=== PATIENT | male | born 1945 | race Caucasian/White ===

== ENCOUNTER 2017-07-08 01:15 | Inpatient (IN) | payer OTHER ==
[~2017-07-08] VITALS: Ht 190.5 cm; Wt 105.8 kg
[~2017-07-08 01:15] MED LIST: ASPIRIN325 M2 PO; ATORVASTATIN CA40 M1 PO; LISINOPRIL20 M1 PO; PAROXETINE HCL20 M1 PO
--- NOTE | 2017-07-08 10:40 | Admission Core Measures ---
Acute Coronary Syndrome (CM) ACS Core Measures Acute Coronary Syndrome Diagnosis No Congestive Heart Failure (NEW) CHF Core Measures Congestive Heart Failure Diagnosis No Cerebrovascular Accident (NEW) CVA Core Measures CVA/TIA Diagnosis No Venous Thromboembolism VTE Core Nenita (View Protocol) VTE Risk Factors Surgery No Mechanical VTE Prophylaxis d/t N/A MechProphylax Ordered No VTE Pharm Prophylaxis d/t Surgical Contraindication Problem List As ranked by this Provider includes Assessment & Plan 1. S/P AAA (abdominal aortic aneurysm) repair HOME MEDS Home Med List Aspirin (Aspirin*) 325 MG TABLET 1 TAB PO DAILY CARDIAC (Reported) Atorvastatin Calcium 40 MG TABLET 1 TAB PO DAILY CHOLESTEROL (Reported) Lisinopril 20 MG TABLET 1 TAB PO DAILY HTN (Reported) Paroxetine HCl 20 MG TABLET 1 TAB PO DAILY MOOD (Reported)
--- NOTE | 2017-07-08 10:45 | Operative Report ---
Operative/Inv Procedure Report Surgery Date: 07/08/17 Name of Procedure: 1. ultrasound guided access of the bilateal groins 2. EVAR 3. closure of bilateral groins with perclose Pre-Operative Diagnosis: AAA Post-Operative Diagnosis: AAA Estimated Blood Loss: less than 50ml Surgeon/Tie Mill Operator: Sarmad OJEDA,Dillon assistant analyst- Brisa OJEDA, Toy Anesthesia: general endotracheal tube Specimens: none Complications: none Operative Indication: 72 y/o m w/ hx of CAD, smoking, known AAA. Pt had imaging of AAA over 1 year ago. Us this year showed aneursym had increased to 5.8cm in diamater. This was confirmed with CTA. Anatomy suitable for EVAR. pt was asymptomatic. He was explained risks/benefits/alternatives of surgery including need for life long surveillance of the anuersym after repair. Informed consent was obtained and placed in the chart. Operative/Procedure Note Note: Pt was brought to the OR. A time out was done to verify the patients name, mrn, . Once this was verified he was placed under anethesia in the supine position. Radial a line, white, and multiple large bore iv's were placed. He was administered prophylactic abx prior to skin incision. His bilateral groins were prepped and drapped in a sterile fashion. Dr. Sykes assisted me for the entiriety of the procedure as there was no pa or resident available with adequate experience. Using ultrasound guidance we directly accessed the bilateral common femoral arteries with micropuncture sheath. Bensons wires were advanced into the aorto using fluoroscopy. A skin incison was made with 11 blade scalpel in both groins and clamp was used to create a tract for perclose closure. We then upsized to 7 sheaths bilaterally. We then used 2 perclose in each groin to position sutures in the 10 oclock and 2 oclock position. ONce these were placed the sutures were covered with moistened gauze and the 7 faroese sheaths were re positioned. At this time we fully heparnized the pt. We then advanced a lundequist wire up the right groin and placed a pigtail catheter up the left side. We then shot an aortogram using the pigtail. The position of the renal arteries was marked and we measured the distance to the bifurcation. We then advanced a cook zenith 24-82 device up the right groin. Prior to deploying the stent we re shot an angiogram which confirmed that we were satisified with our position. We confirmed the orientation of the stent with the check jevon on the device. We then deployed the stent until the contralateral gate was deployed. The top cap was released. Subsequently we used an omni sauce gatheter and glide wire to cannulate the contralateral gate. We then advanced a pig tail and spun it within the stent to comfirm we were infact within the stent. We also shot an angiogram. The lundequist was then placed up through the pigtail and we shot an angiogram from the left sheath to measure the distance to the hypogastric arteries. We then advanced a Zsle 13- 90mm limb up the left side and deployed it. We then finished deploying the ipsalateral gate and then re captured the top cap. We then used a pigtail and shot angiogram on the right to measure distance to the hypo. We then advanced the ZSLE 15-56 device up the right side and deployed it. We then used a coda balloon to ballon the superior portion of the stent, bilateral flow deviders, and the iliac limbs. We then shot a completion aortogram which showed both renal arteries and hypogastric arteries were filling and there was no endoleak. At this time we were satisfied with our results. Both sheaths and wires were removed and the perclose sutures were used to close both groins. We held pressure until hemostasis was obtained. All counts were accurate at the end of the cath. The patient was extubated and transferred to the pacu in stable condition. Findings: 5.8cm AAA. Successful placement of cook endograft with post angiogram demonstrating filling of the bilateral renals/ hypogastric artery and no endoleak.
--- NOTE | 2017-07-08 10:47 | Patient Discharge Instructions ---
Discharge Instructions General Discharge Information You were seen/treated for: ABDOMINAL AORTIC ANEURYSM You had these procedures: ENDOVASCUALR REPAIR OF AORTIC ANEURYSM Watch for these problems: DRAINAGE FROM WOUNDS REDNESS OR SWELLING AROUND WOUNDS FEVER OVER 101 No bath, but you may shower: Yes Special Instructions: KEEP INCISIONS CLEAN AND DRY Diet Continue normal diet: Yes Activity Activity Self Limited: Yes Pounds, do NOT lift more than: 10 Acute Coronary Syndrome Inclusion Criteria At DC or during hospital stay patient has or had the following: ACS DIAGNOSIS No Discharge Core Measures Meds if any: Prescribed or Continued at Discharge Meds if any: NOT Prescribed or Continued at Discharge Congestive Heart Failure Inclusion Criteria At DC or during hospital stay patient has or had the following: CHF DIAGNOSIS No Discharge Core Measures Meds if any: Prescribed or Continued at Discharge Meds if any: NOT Prescribed or Continued at Discharge Cerebrovascular accident Inclusion Criteria At DC or during hospital stay patient has or had the following: CVA/TIA Diagnosis No Discharge Core Measures Meds if any: Prescribed or Continued at Discharge Meds if any: NOT Prescribed or Continued at Discharge Venous thromboembolism Inclusion Criteria VTE Diagnosis No VTE Type NONE VTE Confirmed by (Test) NONE Discharge Core Measures - Per Current guidelines, there needs to be overlap - treatment for the first 5 days of Warfarin therapy. - If discharged on Warfarin prior to 5 days of - overlap therapy, the patient will need to be - assessed for post discharge needs including - *Post discharge parental anticoagulation - *Warfarin and/or parental anticoagulation education - *Follow up date to check INR post discharge At least 5 days overlap therapy as Inpatient No Meds if any: Prescribed or Continued at Discharge Note: Overlap Therapy is Warfarin and Anticoagulant Meds if any: NOT Prescribed or Continued at Discharge
[2017-07-08 12:10] VITALS: BP 112/60
--- NOTE | 2017-07-08 12:53 | RADIOLOGY REPORT ---
EXAMINATION: CR ABDOMEN/INTRAOPERATIVE FLUOROSCOPY CLINICAL INDICATION: Endovascular abdominal aortic aneurysm repair in OR. COMPARISON: Scan of the abdomen and pelvis dated 06/17/2017. TECHNIQUE/FINDINGS: Fluoroscopic equipment was dedicated to the operating room for the performance of an intraoperative procedure. Several (3) spot films and 7 cine fluoroscopy runs were acquired and are archived in PACS. Please refer to operative notes for procedural detail. FLUOROSCOPY TIME: 19 minutes and 33 seconds. IMPRESSION: Administrative dictation for intraoperative fluoroscopy and image archiving in PACS. Please refer to operative notes for details.
[2017-07-08 14:00] VITALS: BP 109/64
--- NOTE | 2017-07-08 14:04 | PN- Vascular Surgery ---
Subjective Subjective: POC pt in bed, no complaints of pain. no nausea. laying flat in bed, on bedrest white in place. deneis cp/sob, fevers Objective Vital Signs and I&Os Vital Signs Date Time Temp Pulse Resp B/P B/P Pulse O2 O2 Flow FiO2 Mean Ox Delivery Rate 07/08 1210 97.9 60 22 112/60 97 Room Air Intake & Output 07/08 1600 07/08 0800 07/08 0000 07/07 1600 07/07 0807/07 0000 Intake Total Output Total Balance Patient 233 lb Weight Weight Bed scale Measurement Method Physical Exam: gen- NAD resp- clear cardiac- RRR abd- ND, soft, NT bilateral groins are nontender, no swelling, minimal dry sang drainage on dressing, 2+ femoral pulses bilaterally. ext- +PT signals bilaterally. feet warm and dry. distal sensory and motor function intact Current Medications: Current Medications Sig/Jared Start time Last Medication Dose Route Stop Time Status Admin Aspirin 325 MG DAILY 07/09 899 DC PO Aspirin 325 MG DAILY 07/09 899 AC PO Atorvastatin Calcium 40 MG DAILY 07/09 899 DC PO Atorvastatin Calcium 40 MG DAILY 07/09 899 AC PO Cefazolin Sodium 2 GM IQ8 07/08 1600 AC N/A 1 UNIT IV 07/09 0029 Dextrose/Sodium 1,000 ML .[id number] 07/08 1230 AC 07/08 Chloride IV 1309 Lisinopril 20 MG DAILY 07/09 899 DC PO Lisinopril 20 MG DAILY 07/09 899 AC PO Morphine Sulfate 2 MG Q2P PRN 07/08 1230 AC IV Ondansetron HCl 4 MG Q6P PRN 07/08 1230 AC IV Oxycodone/ 1 TAB Q4P PRN 07/08 1230 AC Acetaminophen PO Oxycodone/ 2 TAB Q4P PRN 07/08 1230 AC Acetaminophen PO Paroxetine HCl 20 MG DAILY 07/09 899 DC PO Paroxetine HCl 20 MG DAILY 07/09 899 AC PO Promethazine HCl 12.5 MG Q6P PRN 07/08 1230 AC IV 07/15 1029 Assessment/Plan Assessment/Plan 72yo M SP EVAR POD0. stable bedrest with flat head of bed until 5pm. white to come out tonight pain management FU labs Q4h neurovascular and groin checks reg home meds perio-op abx for 24h total dc planning- likely dc to home tomorrow with [address] Bañuelos Core Measures Venous Thromboembolism VTE Risk Factors Surgery No Mechanical VTE Prophylaxis d/t N/A MechProphylax Ordered No VTE Pharm Prophylaxis d/t Surgical Contraindication
--- NOTE | 2017-07-08 14:09 | Surgical Discharge Summary ---
See Addendum Visit Information Visit Dates Admission Date: 07/08/17 Discharge Date: 07/09/17 History of Present Illness Chief Complaint: infra-renal AAA Medical History Blood Transfusion Hx: No Neurological: NONE EENT: NONE Cardiovascular: hypertension, hyperlipidemia Respiratory: NONE Gastrointestinal: NONE Hepatic: NONE Renal: NONE Musculoskeletal: NONE Psychiatric: NONE Endocrine: L ADRENECTOMY Blood Disorders: NONE Cancer(s): NONE SLUNK SKINNER/Reproductive: NONE History of MRSA: No History of VRE: No History of CDIFF: No Isolation History: Standard Surgical History Pertinent Surgical History: non-contributory Psychosocial History Where Do You Live? Home Who Do You Live With? Spouse Services at Home: None What is Your Primary Language? Mexican Review of Systems: PER [facility] Hospital Course Course Attending Physician: Dillon Bañuelos MD Primary Care Physician: Javier Rubalcava MD Hospital Course: pt presented to [facility] on 07/08/17 for an elective EVAR with Dr. Bañuelos. PT tolerated procedure well. Remained on bedrest with the head of bed flat for 6 hours post-operatively, pain was controlled neurovascular status was same as baseline, white was removed and pt was voiding spontaneously. He was ambulating, tolerating diet and was cleared for DC to home with follow-up with Dr Bañuelos recommended in 2 weeks. Allergies: Coded Allergies: No Known Allergies (07/04/17) Disposition Summary Disposition Principal Diagnosis: AAA Additional Diagnosis: SP EVAR Discharge Disposition: home or self care Discharge Instructions General Discharge Information Code Status: Full Code Patient's Diet: regular Patient's Activity: as tolerated Follow-Up Instructions/Appts: FU with Dr. Bañuelos in 1-2 weeks Medications at Discharge Discharge Medications: Continue taking these medications: Lisinopril (Lisinopril) 20 MG TABLET 1 Tablet ORAL DAILY Comments: Last Taken: 07/09/17 Time: 0800AM Atorvastatin Calcium (Atorvastatin Calcium) 40 MG TABLET 1 Tablet ORAL DAILY Comments: Last Taken: 07/09/17 Time: 0800AM Paroxetine HCl (Paroxetine HCl) 20 MG TABLET 1 Tablet ORAL DAILY Comments: Last Taken: 07/09/17 Time: 0800AM Aspirin (Aspirin*) 325 MG TABLET 1 Tablet ORAL DAILY Comments: Last Taken: 07/09/17 Time: 0845AM Start taking the following new medications: Oxycodone HCl/Acetaminophen (Percocet 5-325 MG Tablet) 5 MG-325 MG TABLET 1-2 Tablet ORAL EVERY 4-6 HOURS as needed for PAIN Qty = 15 No Refills Comments: NOT GIVEN IN HOSPITAL Copies To: Khadar OJEDA,Javier Bailon
[2017-07-08 16:00] VITALS: BP 124/78
[2017-07-08 16:01] LABS: ABSOLUTE BASOPHIL COUNT 0 /CUMM (0.0-0.2); ABSOLUTE EOSINOPHIL COUNT 0.1 /CUMM (0.0-0.7); ABSOLUTE GRANULOCYTE CT 5.2 /CUMM (1.4-6.5); ABSOLUTE LYMPH COUNT 1.5 /CUMM (1.2-3.4); ABSOLUTE MONOCYTE COUNT 0.4 /CUMM (0.10-0.60); BASOPHIL % 0.4 % (0.0-2.0); EOSINOPHIL % 1.9 % (0-5); GRANULOCYTE % 71.5 % (42.2-75.2); MEAN CORPUSCULAR HGB 32.2 PG (27.0-31.0); MEAN CORPUSCULAR HGB CONC 33.5 G/DL (33.0-37.0); MEAN CORPUSCULAR VOLUME 95.9 FL (80.0-94.0); MEAN PLATELET VOLUME 7.6 FL (7.4-10.4); PLATELET COUNT 191 /CUMM (130-400); RBC DISTRIBUTION WIDTH 12.5 % (11.5-14.5); RED BLOOD CELL CT 4.07 /CUMM (4.70-6.10); WHITE BLOOD CELL COUNT 7.3 /CUMM (4.8-10.8)
[2017-07-08 18:00] VITALS: BP 102/52
[2017-07-08 21:59] VITALS: BP 100/56
[2017-07-09 02:06] VITALS: BP 108/60
[2017-07-09 06:10] VITALS: BP 118/60
[2017-07-09 08:26] LABS: ABSOLUTE BASOPHIL COUNT 0 /CUMM (0.0-0.2); ABSOLUTE EOSINOPHIL COUNT 0.2 /CUMM (0.0-0.7); ABSOLUTE GRANULOCYTE CT 6.9 /CUMM (1.4-6.5); ABSOLUTE MONOCYTE COUNT 0.6 /CUMM (0.10-0.60); BASOPHIL % 0.3 % (0.0-2.0); EOSINOPHIL % 1.8 % (0-5); GRANULOCYTE % 78.9 % (42.2-75.2); HEMATOCRIT 38.4 % (42-52); MEAN CORPUSCULAR HGB 32.4 PG (27.0-31.0); MEAN CORPUSCULAR VOLUME 95.2 FL (80.0-94.0); MEAN PLATELET VOLUME 7.9 FL (7.4-10.4); PLATELET COUNT 178 /CUMM (130-400); RBC DISTRIBUTION WIDTH 12.1 % (11.5-14.5); RED BLOOD CELL CT 4.04 /CUMM (4.70-6.10); WHITE BLOOD CELL COUNT 8.7 /CUMM (4.8-10.8)
--- NOTE | 2017-07-09 09:27 | PN- Vascular Surgery ---
Subjective Subjective: Patient reports incisional discomfort, which is improved with ice and perocet. He reports voiding and ambulating without difficulty. Reports back pain from laying in bed yesterday. Otherwise, offers no other complaints. He is eager to go home today. Objective Vital Signs and I&Os Vital Signs Date Time Temp Pulse Resp B/P B/P Pulse O2 O2 Flow FiO2 Mean Ox Delivery Rate 07/09 0845 64 118/78 07/09 0610 98.4 59 20 118/60 90 Room Air 07/09 0206 98.7 52 20 108/60 90 Room Air 07/08 2159 98.3 53 18 100/56 93 Room Air 07/08 1800 98.4 60 20 102/52 95 Room Air 07/08 1600 98.0 49 18 124/78 95 Room Air 07/08 1400 97.9 58 18 109/64 95 Room Air 07/08 1210 97.9 60 22 112/60 97 Room Air Intake & Output 07/09 1600 07/09 0800 07/09 0000 07/08 1600 07/08 0800 07/08 0000 Intake Total 600 725 250 Output Total 825 625 850 Balance -225 100 -600 Intake, IV 600 525 150 Intake, Oral 200 100 Number 0 Bowel Movements Output, Urine 825 625 850 Patient 233 lb Weight Weight Bed scale Measurement Method Physical Exam: Gen - NAD Lungs - faint ex wheezes in b/l bases Cardiac- RRR Abd- softly distended, nontender throughout - ice in place, right groin dressing is mild saturated, left is clean an dry, he is appropriately tender, mild swelling, pulses present B/L Ext - distal sensory and motor function intact, pulses present, no edema or calf tenderness B/L Current Medications: Current Medications Sig/Jared Start time Last Medication Dose Route Stop Time Status Admin Aspirin 325 MG DAILY 07/09 899 DC PO Aspirin 325 MG DAILY 07/09 899 AC 07/09 PO 0845 Atorvastatin Calcium 40 MG DAILY 07/09 899 DC PO Atorvastatin Calcium 40 MG DAILY 07/09 899 AC 07/09 PO 0845 Cefazolin Sodium 2 GM IQ8 07/08 1600 DC 07/09 N/A 1 UNIT IV 07/09 0029 0003 Dextrose/Sodium 1,000 ML .[id number] 07/08 1230 DC 07/09 Chloride IV 0328 Lisinopril 20 MG DAILY 05/01 0900 DC PO Lisinopril 20 MG DAILY 07/09 09 AC 07/09 PO 0845 Morphine Sulfate 2 MG Q2P PRN 07/08 1230 AC IV Ondansetron HCl 4 MG Q6P PRN 07/08 1230 AC IV Oxycodone/ 1 TAB Q4P PRN 07/08 1230 AC Acetaminophen PO Oxycodone/ 2 TAB Q4P PRN 07/08 1230 AC 07/08 Acetaminophen PO 1913 Paroxetine HCl 20 MG DAILY 07/09 899 DC PO Paroxetine HCl 20 MG DAILY 07/09 899 AC 07/09 PO 0845 Promethazine HCl 12.5 MG Q6P PRN 07/08 1230 AC IV 07/15 1029 Results Last 48 Hours of Labs: Laboratory Tests 07/09 07/08 0557 1447 Chemistry Sodium (137 - 145 mmol/L) 135 L 136 L Potassium (3.5 - 5.1 mmol/L) 4.4 4.4 Chloride (98 - 107 mmol/L) 97 L 101 Carbon Dioxide (22 - 30 mmol/L) 27 28 Anion Gap (5 - 16) 10 6 BUN (9 - 20 mg/dL) 12 12 Creatinine (0.7 - 1.2 mg/dL) 0.7 0.6 L Estimated GFR (>60 ml/min) > 60 > 60 BUN/Creatinine Ratio (7 - 25 %) 17.1 20.0 Hematology CBC w Diff NO MAN DIFF REQ NO MAN DIFF REQ WBC (4.8 - 10.8 /CUMM) 8.7 7.3 RBC (4.70 - 6.10 /CUMM) 4.04 L 4.07 L Hgb (14.0 - 18.0 G/DL) 13.1 L 13.1 L Hct (42 - 52 %) 38.4 L 39.0 L MCV (80.0 - 94.0 FL) 95.2 H 95.9 H MCH (27.0 - 31.0 PG) 32.4 H 32.2 H MCHC (33.0 - 37.0 G/DL) 34.0 33.5 RDW (11.5 - 14.5 %) 12.1 12.5 Plt Count (130 - 400 /CUMM) 178 191 MPV (7.4 - 10.4 FL) 7.9 7.6 Gran % (42.2 - 75.2 %) 78.9 H 71.5 Lymphocytes % (20.5 - 51.1 %) 11.7 L 20.1 L Monocytes % (1.7 - 9.3 %) 7.3 6.1 Eosinophils % (0 - 5 %) 1.8 1.9 Basophils % (0.0 - 2.0 %) 0.3 0.4 Absolute Granulocytes (1.4 - 6.5 /CUMM) 6.9 H 5.2 Absolute Lymphocytes (1.2 - 3.4 /CUMM) 1.0 L 1.5 Absolute Monocytes (0.10 - 0.60 /CUMM) 0.6 0.4 Absolute Eosinophils (0.0 - 0.7 /CUMM) 0.2 0.1 Absolute Basophils (0.0 - 0.2 /CUMM) 0 0 Assessment/Plan Assessment/Plan 72 M POD 1 s/p EVAR, recovering well, stable for discharge Cont reg diet, d/c IVF Cont pain regimen Cont neurovascular and groin checks Q4 Home meds on board, asa 325 Encourage oob ambulation D/c meds and instructions explained in detail F/u in [address] Bañuelos for repeat CT D/c home today D/w Dr. Bañuelos Core Measures Venous Thromboembolism VTE Risk Factors Surgery No Mechanical VTE Prophylaxis d/t N/A MechProphylax Ordered No VTE Pharm Prophylaxis d/t Surgical Contraindication
[2017-07-09] MEDS ORDERED: PERCOCET 5-3251 EACH PO (09:52)
[2017-07-09 10:00] VITALS: BP 106/57
== END 2017-07-09 11:00 | DRG 269 ==
LOC: 2NB 01:15 → SDA 01:15 → 2NB 01:15 → ENRESERV 10:34 → ENTRNSPT 11:53 → EDTRNSPT 12:00 → EDTRNSPTSTS 12:00 → 2NB 12:08 → CMPTRNSPT 12:22 → 2NB 12:28 → ENPENDDIS 07-09 10:08 → ENTRNSPT 07-09 10:43 → CMPTRNSPT 07-09 11:00 → 2NB 07-09 11:00
PROVIDERS: Physician Assistant Surgical
PROC: B4101ZZ Fluoroscopy of Abdominal Aorta using Low Osmolar Contrast (ICD-10-PCS; principal; 2017-07-08)
PROC: 04V03D6 (ICD-10-PCS; principal; 2017-07-08)
DX: I71.4 Abdominal aortic aneurysm, without rupture (principal); E78.5 Hyperlipidemia, unspecified; I25.10 Atherosclerotic heart disease of native coronary artery without angina pectoris; I25.2 Old myocardial infarction; I10 Essential (primary) hypertension; Z98.61 Coronary angioplasty status; F17.210 Nicotine dependence, cigarettes, uncomplicated; Z79.82 Long term (current) use of aspirin
CPT/HCPCS: 36592; 74018; 82436; 87086; C1725; C1760; J0131; J0690; J1644; J2405; J2550; J2720; J3490; J7042; Q9965; Q9967

== ENCOUNTER 2017-08-02 11:15 | Inpatient (IN) | payer OTHER ==
[~2017-08-02] VITALS: Ht 190.5 cm; Wt 101.6 kg
[~2017-08-02 11:15] MED LIST changes: +PERCOCET 5-3251 EACH PO
[2017-08-02 11:59] LABS: ABSOLUTE BASOPHIL COUNT 0 /CUMM (0.0-0.2); ABSOLUTE EOSINOPHIL COUNT 0 /CUMM (0.0-0.7); ABSOLUTE GRANULOCYTE CT 15.4 /CUMM (1.4-6.5); ABSOLUTE MONOCYTE COUNT 1.1 /CUMM (0.10-0.60); BASOPHIL % 0.1 % (0.0-2.0); EOSINOPHIL % 0 % (0-5); GRANULOCYTE % 88.3 % (42.2-75.2); HEMATOCRIT 39.2 % (42-52); MEAN CORPUSCULAR HGB 32.3 PG (27.0-31.0); MEAN CORPUSCULAR HGB CONC 34.5 G/DL (33.0-37.0); MEAN CORPUSCULAR VOLUME 93.9 FL (80.0-94.0); MEAN PLATELET VOLUME 7.3 FL (7.4-10.4); PLATELET COUNT 184 /CUMM (130-400); RBC DISTRIBUTION WIDTH 12.4 % (11.5-14.5); RED BLOOD CELL CT 4.17 /CUMM (4.70-6.10); WHITE BLOOD CELL COUNT 17.4 /CUMM (4.8-10.8)
--- NOTE | 2017-08-02 12:05 | ED AMS/SEIZURE/WEAK/DIZZY ---
History of Present Illness General Chief Complaint: General Adult Stated Complaint: WEAKNESS/DIARRHEA Source: patient Exam Limitations: no limitations Vital Signs & Intake/Output Vital Signs & Intake/Output Vital Signs Date Time Temp Pulse Resp B/P B/P Pulse O2 O2 Flow FiO2 Mean Ox Delivery Rate 08/02 1500 97.2 71 16 117/57 96 Room Air 08/02 1253 Room Air Room Air 08/02 1215 99.5 75 16 113/57 98 Room Air 08/02 1126 98.9 72 18 101/60 94 Room Air Allergies Coded Allergies: No Known Allergies (07/04/17) Reconcile Medications Aspirin (Aspirin*) 325 MG TABLET 1 TAB PO DAILY CARDIAC (Reported) Atorvastatin Calcium 40 MG TABLET 1 TAB PO DAILY CHOLESTEROL (Reported) Lisinopril 20 MG TABLET 1 TAB PO DAILY HTN (Reported) Oxycodone HCl/Acetaminophen (Percocet 5-325 MG Tablet) 5 MG-325 MG TABLET 1-2 TAB PO Q4-6 PRN PAIN Paroxetine HCl 20 MG TABLET 1 TAB PO DAILY MOOD (Reported) Triage Note: RECEIVED 72 YO MALE S/O TRIPLE A REPAIR ONE MONTH AGO,. SENT TO ED BY DR RUBALCAVA FOR INTRACTABLE DIARRHEA X 2 DAYS WITH SEVERE WEAKNESS AND ORTHOSTATIC B/P AT MD'S OFFICE. Triage Nurses Notes Reviewed? yes Onset: Gradual Duration: day(s): Timing: recent history Injury Environment: home Severity: moderate HPI: 72yo male with hx of HTN, OR, pheocromocytoma, AAA repair last month presents to ED complaining of sweating, diarrhea, myalgias, fever x 2 days. reports fever of 100.7 at home. Patient has been taking tylenol with some relief. Patient also reports loss of balance relating to his weakness, he felt last night landing on his back without other injury. Patient reports 20+ episodes of nonbloody diarrhea per day. Patient also reports dysuria, urgerncy, and urinary frequency. Patient reports baseline chronic cough, unchanged recently. The patient denies sick contact, abdominal pain, hemoptysis, chest pain, dyspnea. He saw his PCP, Dr. Rubalcava, and had +orthostatic vital signs, it was recommended that he report here to ED. (Claudette GIL,Franca Remy) Past History Travel History Traveled to [place] past 21 day No Medical History Any Pertinent Medical History? 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 No (Franca Figueroa) Review of Systems Review of Systems Constitutional: Reports: see HPI. EENTM: Reports: no symptoms. Respiratory: Reports: see HPI. Cardiovascular: Reports: no symptoms. GI: Reports: see HPI. Genitourinary: Reports: see HPI. Musculoskeletal: Reports: no symptoms. Skin: Reports: no symptoms. Neurological/Psychological: Reports: no symptoms. Hematologic/Endocrine: Reports: no symptoms. Immunologic/Allergic: Reports: no symptoms. All Other Systems: Reviewed and Negative (Franca Figueroa) Physical Exam Physical Exam General Appearance: well developed/nourished, no apparent distress, alert, awake Head: atraumatic, normal appearance Eyes: Bilateral: normal appearance. Ears, Nose, Throat: hearing grossly normal Neck: normal inspection, supple, full range of motion Respiratory: no respiratory distress, bilateral wheezing lung bases Cardiovascular: regular rate/rhythm Gastrointestinal: normal bowel sounds, soft, non-tender, no organomegaly Back: normal inspection, normal range of motion Extremities: normal range of motion Neurologic/Psych: awake, alert, oriented x 3 Skin: intact, normal color, warm/dry Core Measures ACS in differential dx? No CVA/TIA Diagnosis No Sepsis Present: No Sepsis Focused Exam Completed? No (Franca Figueroa) Progress Differential Diagnosis: anemia, dehydration, electrolyte imbalance, pneumonia, sepsis, UTI/pyelo, GASTROENTERITIS, C. DIFF Plan of Care: Orders Procedure Date/time Status Heart Healthy Diet 08/02 D Active LACTIC ACID 08/02 1609 Active Patient Data 08/02 1537 Active ED Holding Orders 08/02 1532 Active Admit to inpatient 08/02 1532 Active Vital Signs 08/02 1532 Active Code Status 08/02 1532 Active BLOOD CULTURE 08/02 1336 Active LACTIC ACID 08/02 1309 Complete Intake & Output 08/02 1252 Active CULTURE,URINE 08/02 1221 Active CULTURE,STOOL 08/02 1221 Active OVA AND PARASITE ANTIGENS 08/02 122 Active C.DIFFICILE 08/02 122 Active Add-on Test (ER Only) 08/02 1211 Active MISTAKE 08/02 1126 Active URINALYSIS 08/02 112 Active TROPONIN LEVEL 08/02 1126 Complete MAGNESIUM 08/02 112 Complete COMPREHENSIVE METABOLIC PANEL 08/02 112 Complete CBC WITHOUT DIFFERENTIAL 08/02 112 Complete EKG 08/02 112 Active Current Medications Sig/Jared Start time Last Medication Dose Stop Time Status Admin Sodium Chloride 1,000 ML BOLUS ONE 08/02 1530 AC 08/02 (Normal Saline 0.9%) 08/02 1629 1530 Laboratory Tests 08/02/17 1558: Lactic Acid Pending 08/02/17 1320: Lactic Acid 1.2 08/02/17 1140: Anion Gap 10, Estimated GFR 46 L, BUN/Creatinine Ratio 24.7, Glucose 112 H, Calcium 8.6, Magnesium 2.0, Total Bilirubin 1.1, AST 25, ALT 22, Alkaline Phosphatase 56, Troponin I 0.02, Total Protein 6.4, Albumin 3.9, Globulin 2.5, Albumin/Globulin Ratio 1.6 08/02/17 1120: CBC w Diff MAN DIFF ORDERED, RBC 4.17 L, MCV 93.9, MCH 32.3 H, MCHC 34.5, RDW 12.4, MPV 7.3 L, Gran % 88.3 H, Lymphocytes % 5.5 L, Monocytes % 6.1, Eosinophils % 0, Basophils % 0.1, Absolute Granulocytes 15.4 H, Segmented Neutrophils 72, Band Neutrophils 7 H, Absolute Lymphocytes 1.0 L, Lymphocytes 12 L, Monocytes 8, Absolute Monocytes 1.1 H, Eosinophils 1, Absolute Eosinophils 0, Absolute Basophils 0, Platelet Estimate VERIFIED BY SMEAR, Normocytic RBCs VERIFIED, Normochromic RBCs VERIFIED Microbiology 08/02 1336 BLOOD: Blood Culture - ORD 08/02 133 BLOOD: Blood Culture - ORD 08/02 122 URINE ROUT: Urine Culture - ORD 08/02 1221 STOOL: Cryptosporidium Antigen - ORD 08/02 122 STOOL: Giardia Antigen (JAROD) - ORD 08/02 122 STOOL: Clostridium difficile Toxin A & B - ORD 08/02 122 STOOL: Stool Culture - ORD Patient has orthostatic hypotension, started on IV fluids. Labs show leukocytosis of 17, JERRELL with changes in renal function compared to old labs. UA is pending. Patient unable to urinate here in ED, likely related to his dehydration. Bladder scan does not show overly distended bladder. Further IV fluids initiated. Spoke with Case management who recommend full admission. Spoke with Dr. Roach who agrees with plan for admission given dehydration and JERRELL. Spoke with Dr. Vieira regarding general medicine admission for hydration, acute kidney injury, orthostatic hypotension, diarrhea. Diagnostic Imaging: Viewed by Me: Radiology Read. Discussed w/RAD: Radiology Read. Radiology Impression: PATIENT: INA LANZA PRESENT AGE: 72 PATIENT ACCOUNT NO: [id number] : 46 LOCATION: [facility] ORDERING PHYSICIAN: Franca GIL SERVICE DATE: 08/02/17 EXAM TYPE: RAD - XRY-CHEST XRAY, TWO VIEWS EXAMINATION: XR CHEST CLINICAL INFORMATION: Fever, sweats, wheezing. COMPARISON: 02/14/2012 TECHNIQUE: 2 views of the chest were obtained. FINDINGS: The lungs are well expanded. There is no focal consolidation , edema, or effusion. No pneumothorax. The cardiomediastinal silhouette is within normal limits. No acute osseous abnormality. Mild degenerative changes of the spine. IMPRESSION: Clear lungs. DICTATED BY: Dave Barone MD DATE/TIME DICTATED:08/02/171239 HEAD OF QUALITY:CANDACE DATE/TIME TRANSCRIBED:1239 CONFIDENTIAL, DO NOT COPY WITHOUT APPROPRIATE AUTHORIZATION. < Electronically signed in Other Vendor System> SIGNED BY: Dave Barone MD 08/02/17 1244 Initial ED EKG: sinus rhythm @65bpm, nonspecific ST changes Prior EKG: unchanged (02/15/12) (Claudette GIL,Franca Remy) Departure Departure Disposition: STILL A PATIENT Condition: Stable Clinical Impression Primary Impression: Acute kidney injury Secondary Impressions: Dehydration, Diarrhea, Orthostatic hypotension Referrals: Javier Rubalcava MD (PCP/Family) Departure Forms: Customer Survey General Discharge Information Admission Note Spoke With: Ifeoma Vieira MD Documentation of Exam: Documentation of any treatments & extenuating circumstances including Concerns Regarding Discharge (functional status, medication knowledge or non-compliance, living conditions, etc.) that warrant an admission rather than observation: [ Acute kidney injury in setting of dehydration and persistent diarrhea, patient is symptomatic with weakness and gait instability. He requires IV fluid rehydration, repeat labs, repeat orthostatic vital signs, follow-up with stool cultures/C. difficile testing, urine culture given urinary symptoms.] (Claudette GIL,Franca Remy) PA/MEDICAL RECEPTIONIST MEDICAL ASSISTANT Co-Sign Statement Statement: ED Attending supervision documentation- [X] I saw and evaluated the patient. I have also reviewed all the pertinent lab results and diagnostic results. I agree with the findings and the plan of care as documented in the PA's/MEDICAL RECEPTIONIST MEDICAL ASSISTANT's documentation. [X] I have reviewed the ED Record and agree with the PA's/MEDICAL RECEPTIONIST MEDICAL ASSISTANT's documentation. [] Additions or exceptions (if any) to the PAs/MEDICAL RECEPTIONIST MEDICAL ASSISTANT's note and plan are summarized below: [Patient is having profuse diarrhea and is now in acute renal failure. Patient also had a recent endovascular AAA repair. Patient will require admission for IV fluids. Patient only be kept in isolation until C. difficile is ruled out. Patient will need consultation.] (Doc OJEDA,Jas Sin)
--- NOTE | 2017-08-02 12:44 | RADIOLOGY REPORT ---
EXAMINATION: XR CHEST CLINICAL INFORMATION: Fever, sweats, wheezing. COMPARISON: 02/14/2012 TECHNIQUE: 2 views of the chest were obtained. FINDINGS: The lungs are well expanded. There is no focal consolidation, edema, or effusion. No pneumothorax. The cardiomediastinal silhouette is within normal limits. No acute osseous abnormality. Mild degenerative changes of the spine. IMPRESSION: Clear lungs.
--- NOTE | 2017-08-02 16:03 | History & Physical ---
Dimitry OJEDA,[facility] 08/02/17 1602: General Information and HPI MD Statement: I have seen and personally examined INA LANZA and documented this H&P. The patient is a 72 year old M who presented with a patient stated chief complaint of [diarrhea]. Source of Information: patient Exam Limitations: no limitations History of Present Illness: The patient is 72-year-old gentleman with past medical history of hypertension, hyperlipidemia, CO in 2011,s/o pheocytochroma removal in 1983 and recent aortic aneurysm repair on 07/07/17. Patient presented to [place] ED on 08/02 with complain of multiple diarrheal episodes. Patient stated that he was in usual state of health until last Saturday when he started feeling chills and sweating myalgias and had an diarrheal episode. Ever since then patient has had 20 episodes of diarrhea every day. Diarrhea is loose watery, foul-smelling, where his Simcor from yellow to brown. Does not report noticing any blood in the diarrhea. Patient does not report any sick contacts. Did not report any take out meals. Recent travels or recent antibiotic exposure. He denied any nausea vomiting or abdominal pain. At home patient has been running fevers up to 100.9. The patient reports poor appetite and decreased oral intake. He reported an episode of fall because of losing balance and feeling so weak. Patient landed on his hip. And reports some pain in coccyx. Patient did not lose consciousness. There was no seizure-like activity or urinary or fecal incontinence He also reported increased urinary urgency, increased frequency along with burning sensation with urination. On review of patient systems patient reported a chronic cough unchanged from baseline patient continues to smoke half a pack a day for past 50 years The patient took Imodium in the morning and has not had an diarrheal episodes since 9 AM. He also has not passed urine since 9 AM in the morning. Allergies/Medications Allergies: Coded Allergies: No Known Allergies (07/04/17) Home Med list Aspirin (Aspirin*) 325 MG TABLET 1 TAB PO DAILY CARDIAC (Reported) Atorvastatin Calcium 40 MG TABLET 1 TAB PO DAILY CHOLESTEROL (Reported) Lisinopril 20 MG TABLET 1 TAB PO DAILY HTN (Reported) Oxycodone HCl/Acetaminophen (Percocet 5-325 MG Tablet) 5 MG-325 MG TABLET 1-2 TAB PO Q4-6 PRN PAIN Paroxetine HCl 20 MG TABLET 1 TAB PO DAILY MOOD (Reported) Past History Travel History Traveled to [place] past 21 day No Medical History Neurological: NONE EENT: NONE Cardiovascular: hypertension, hyperlipidemia Respiratory: NONE Gastrointestinal: NONE Hepatic: NONE Renal: NONE Musculoskeletal: NONE Psychiatric: NONE Endocrine: L ADRENECTOMY Blood Disorders: NONE Cancer(s): NONE 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 Home Who Do You Live With? spouse Services at Home: None Primary Language: Bermudian Smoking Status: Current Everyday Smoker ETOH Use: denies use Illicit Drug Use: denies illicit drug use Functional Ability ADLs Independent: dressing, eating, toileting, bathing. Ambulation: independent IADLs Independent: shopping, housework, finances, food prep, telephone, transportation , medication admin. Review of Systems Review of Systems Constitutional: Reports: see HPI, chills. Cardiovascular: Reports: no symptoms. Respiratory: Reports: cough. GI: Reports: diarrhea. Denies: abdominal pain. Genitourinary: Reports: dysuria, frequency, hesitation, nocturia. Musculoskeletal: Reports: no symptoms. Skin: Reports: no symptoms. Exam & Diagnostic Data Last 24 Hrs of Vital Signs/I&O Vital Signs Date Time Temp Pulse Resp B/P B/P Pulse O2 O2 Flow FiO2 Mean Ox Delivery Rate 08/02 1826 101.2 82 20 130/80 92 Room Air 08/02 1500 97.2 71 16 117/57 96 Room Air 08/02 1253 Room Air Room Air 08/02 1215 99.5 75 16 113/57 98 Room Air 08/02 1126 98.9 72 18 101/60 94 Room Air Intake & Output 08/02 1600 08/02 0800 08/02 0000 Intake Total 100 Output Total Balance 100 Intake, IV 100 Patient 225 lb Weight Weight Estimated Measurement Method Physical Exam General Appearance Alert, Oriented X3, Cooperative Cardiovascular Normal S1, Normal S2, No Murmurs Lungs Clear to Auscultation Abdomen Normal Bowel Sounds, Soft, No Tenderness Neurological Normal Speech Last 24 Hrs of Labs/José: Laboratory Tests 08/02/17 1558: Lactic Acid 1.1 08/02/17 1320: Lactic Acid 1.2 08/02/17 1140: Anion Gap 10, Estimated GFR 46 L, BUN/Creatinine Ratio 24.7, Glucose 112 H, Calcium 8.6, Magnesium 2.0, Total Bilirubin 1.1, AST 25, ALT 22, Alkaline Phosphatase 56, Troponin I 0.02, Total Protein 6.4, Albumin 3.9, Globulin 2.5, Albumin/Globulin Ratio 1.6 08/02/17 1120: CBC w Diff MAN DIFF ORDERED, RBC 4.17 L, MCV 93.9, MCH 32.3 H, MCHC 34.5, RDW 12.4, MPV 7.3 L, Gran % 88.3 H, Lymphocytes % 5.5 L, Monocytes % 6.1, Eosinophils % 0, Basophils % 0.1, Absolute Granulocytes 15.4 H, Segmented Neutrophils 72, Band Neutrophils 7 H, Absolute Lymphocytes 1.0 L, Lymphocytes 12 L, Monocytes 8, Absolute Monocytes 1.1 H, Eosinophils 1, Absolute Eosinophils 0, Absolute Basophils 0, Platelet Estimate VERIFIED BY SMEAR, Normocytic RBCs VERIFIED, Normochromic RBCs VERIFIED Microbiology 08/02 1336 BLOOD: Blood Culture - ORD 08/02 1336 BLOOD: Blood Culture - ORD 08/02 1221 URINE ROUT: Urine Culture - ORD 08/02 1221 STOOL: Cryptosporidium Antigen - ORD 08/02 1221 STOOL: Giardia Antigen (JOSÉ) - ORD 08/02 1221 STOOL: Clostridium difficile Toxin A & B - ORD 08/02 1221 STOOL: Stool Culture - ORD Diagnostic Data EKG Results Sinus rhythm QTC 413 CXR Results FINDINGS: The lungs are well expanded. There is no focal consolidation, edema, or effusion. No pneumothorax. The cardiomediastinal silhouette is within normal limits. No acute osseous abnormality. Mild degenerative changes of the spine. IMPRESSION: Clear lungs. Assessment/Plan Assessment: The patient is 72-year-old gentleman with past medical history of hypertension, hyperlipidemia, CO in 2011,s/o pheocytochroma removal in 1983 and recent aortic aneurysm repair on 07/07/17. Patient presented to [place] ED on 08/02 with complain of multiple diarrheal episodes along with fever chills and myalgia. Vitals on presentation within normal limits Admission labs are significant for leukocytosis up to 17.4. H/H 13.5/39. Sodium 133, BUN 47, creatinine 1.5 CXR clear Patient is being admitted to general medicine floor and is being evaluated and treated for following conditions #Acute gastroenteritis Patient is presenting with recurrent episodes without any history of antibiotic use, sick contact travel or take-out food. Bacterial versus viral etiology -Admit to general medicine floor -Monitor WBC and fever curve -Check stool for one parasite -Check C. difficile -Stool culture -IV hydration #JERRELL patient presented with creatinine of 1.5 and his baseline being 0.6 to 0.7. Most likely secondary to dehydration -Avoid nephrotoxins avoid NSAIDs for fever control -Gentle IV hydration -Lisinopril on hold #Rule out UTI He also reported increased urinary urgency, increased frequency along with burning sensation with urination. Patient has not passed urine since 9 AM in the morning. -UA and UC -Bladder scan -If pt is retaining we will do straight cath #Hyponatremia patient presented with sodium of 133 -Check serum osmolality, urine osmolality, urine lyte #Anemia; chronic and around baseline #Chronic medical conditions hyperlipidemia, AAA status post repair, depression Continue Lipitor and aspirin and Paxil #Heart healthy diet/activity prophylaxis with subcutaneous heparin and ALPS/FC As Ranked By This Provider Problem List: 1. Dehydration 2. Diarrhea Core Measures/Misc (11/25) Acute Coronary Syndrome ACS Diagnosis: No Congestive Heart Failure Congestive Heart Failure Diagnosis No Cerebrovascular Accident CVA/TIA Diagnosis: No VTE (View Protocol) VTE Risk Factors Age>40 No Mechanical VTE Prophylaxis d/t N/A MechProphylax Ordered No VTE Pharm Prophylaxis d/t NA PharmProphylax ordered Sepsis (View protocol) Sepsis Present: No If YES complete Sepsis Event Note If YES complete Sepsis Event Note Ifeoma Vieira MD 08/02/17 1615: Core Measures/Misc (11/25) Sepsis (View protocol) If YES complete Sepsis Event Note If YES complete Sepsis Event Note Attending MD Review Statement Attending Statement Attending MD Statement: examined this patient, discuss w/resident/PA/DOOR FRAME ASSEMBLER MACHINE, agreed w/resident/PA/DOOR FRAME ASSEMBLER MACHINE, reviewed EMR data (avail) Attending Assessment/Plan: 72M PMH HTN, HLD, recent endovascular aortic aneurysm repair on 07/07/17 presenting with 2 days of profuse watery diarrhea. Complains of fever, chills, myalgia, and 20+ episodes of diarrhea per day. No recent antibiotics, sick contacts, or travel. Mildly febrile at home at 100, normal vitals here, WBC 17.9, sodium 133, creatinine 1.5, normal lactate. 1. Acute gastroenteritis 2. JERRELL 3. Dehydration Plan - Admit to general medicine - IV hydration - Monitor renal function - Send C.diff - Contact isolation until C.diff returns - Continue home medications, holding anti-hypertensives - DVT PPx Sarah Zambrano 08/02/17 1713: Core Measures/Misc (11/25) Sepsis (View protocol) If YES complete Sepsis Event Note If YES complete Sepsis Event Note Resident Review Statement Other Findings: Patient is 72 year old male with PMH of HTN, HLD, CO in 2011, s/o pheocytochroma removal in 1983, anxiety came with chief complain of recurrent diarrhea and lethargy. Patient states that it all started on Saturday when he was in his usual state of health and he suddenly developed non bloody diarrhea. He reports that he has been going around 20 times a day. Patient also reports of burning micturition and urinary hesitancy since Saturday. Patient denies any sick contacts at home, has not eaten anything from outside, denies abdominal discomfort, nausea, vomiting. Patient states that he has been having low appetite since past 2 days and has not eaten anything. Patient reports that he had a fever of 100.8 on Saturday and it remained in 100 yesterday as well. Labs and vitals as above. Plan: Will admit to Gm floor, and monitor closely. For jerrell, will continue IV fluids and check BEP in am. Will obtain BC x 2, UC, Stool culture ova and parasite and follow up. Will also check c diff. Patient also reports of urinary symptoms of urgency and burning micturation however, he has not been able to pass urine since morning (9am), he was staright cathed at 8pm and 600cc of urine came out, the UA was lazy with > 75 WBC and positive for leukocye esterase. WIll conside starting him on ceftriaxone right now given his leukocytosis and fever of 101.3. Will hold his lisinopril and continue the rest of his home meds including aspirin, statin, paroxetine. Patient smokes half a pack/ day, will give 14 mcg nicotine patch DVT ppx. SC heprin Patient is FC.
--- NOTE | 2017-08-02 16:17 | Admission Certification ---
Admission Certification Certification Statement - As attending physician, I certify that at the time of - admission, based on clinical presentation, severity of - symptoms, need for further diagnostic testing and - therapeutic interventions, and risk of adverse outcomes - without in-hospital treatment, in my clinical assessment, - this patient requires an acute hospital stay for a minimum - of two nights or longer. I have also considered psychsocial - factors such as support system, advanced age, financial - issues, cognitive issues, and failed out-patient treatments, - past re-admission history, safety of patient, and lack of - compliance as applicable. Specific rationale supporting this admission is: Acute gastroenteritis with leukocytosis and JERRELL
[2017-08-02 18:26] VITALS: BP 130/80
[2017-08-02 22:14] VITALS: BP 120/80
--- NOTE | 2017-08-03 05:14 | PN- Housestaff ---
Sarah Zambrano 08/03/17 0514: Subjective Follow-up For: UTI DIARRHEA Subjective: Patient had a fever of 101 yesterday, his UA was significant for UTi. Patient also reported that his urine wa visibly cloudy when it was taken out through straight cath. Patient had straight cath done twice, 1st time had 700 cc urine coming out (last night) again this am was 650 had coming out but patient overall reports to be feeling better now. Review of Systems Constitutional: Reports: see HPI. Objective Last 24 Hrs of Vital Signs/I&O Vital Signs Date Time Temp Pulse Resp B/P B/P Pulse O2 O2 Flow FiO2 Mean Ox Delivery Rate 08/03 0555 99.0 78 20 120/58 92 Room Air 08/02 2214 99.3 64 20 120/80 94 Room Air 08/02 2014 99.3 08/02 1856 101.2 08/02 1826 101.2 82 20 130/80 92 Room Air 08/02 1500 97.2 71 16 117/57 96 Room Air 08/02 1253 Room Air Room Air 08/02 1215 99.5 75 16 113/57 98 Room Air 08/02 1126 98.9 72 18 101/60 94 Room Air Intake & Output 08/03 0800 08/03 0000 08/02 1600 Intake Total 480 100 Output Total 700 Balance -220 100 Intake, IV 100 Intake, Oral 480 Number 1 Bowel Movements Output, Urine 700 Patient 101.605 kg 102.058 kg Weight Weight Reported by Patient Estimated Measurement Method Physical Exam General Appearance: Alert, Oriented X3, Cooperative, No Acute Distress Skin: No Rashes, No Breakdown HEENT: Atraumatic, PERRLA Neck: Supple Cardiovascular: Normal S1, Normal S2 Lungs: Clear to Auscultation, Normal Air Movement Abdomen: Normal Bowel Sounds, Soft, No Tenderness Extremities: No Cyanosis, No Edema Current Medications: Current Medications Sig/Jared Start time Last Medication Dose Route Stop Time Status Admin Acetaminophen 500 MG ONCE ONE 08/02 1829 DC 08/02 PO 08/02 1830 1856 Acetaminophen 0 .STK-MED ONE 08/02 1253 DC IV Acetaminophen 1,000 MG ONCE ONE 08/02 1230 DC 08/02 N/A 1 UNIT IV 08/02 1244 1250 Aspirin 325 MG DAILY 08/02 173 AC 08/02 PO 1900 Atorvastatin Calcium 40 MG 1700 08/02 1733 AC 08/02 PO 2028 Ceftriaxone Sodium 1,000 MG DAILY 08/03 0900 AC IV Heparin Sodium 5,000 UNIT Q8 08/02 2200 08/03 (Porcine) SC 0540 Nicotine 14 MG DAILY 08/02 1753 08/02 TOP 1859 Paroxetine HCl 20 MG DAILY 08/02 1734 08/02 PO 1900 Sodium Chloride 1,000 ML Q10H 08/02 1645 AC 08/03 IV 0437 Sodium Chloride 1,000 ML BOLUS ONE 08/02 1530 DC 08/02 IV 08/02 1629 1530 Sodium Chloride 1,000 ML BOLUS ONE 08/02 1230 DC 08/02 IV 08/02 1429 1321 Last 24 Hrs of Lab/José Results Last 24 Hrs of Labs/Mics: Laboratory Tests 08/02/17 2017: Urine Color YEL, Urine Clarity HAZY H, Urine pH 6.0, Ur Specific Stanton >= 1.030, Urine Protein 30 H, Urine Ketones NEG, Urine Nitrite NEG, Urine Bilirubin NEG, Urine Urobilinogen 1.0, Ur Leukocyte Esterase SMALL H, Ur Microscopic SEDIMENT EXAMINED, Urine RBC 5-10 H, Urine WBC > 75 H, Ur Epithelial Cells RARE, Urine Bacteria PACKD H, Hyaline Casts 3-5 H, Urine Hemoglobin MOD H, Urine Glucose NEG 08/02/17 1558: Lactic Acid 1.1 08/02/17 1320: Lactic Acid 1.2 08/02/17 1140: Anion Gap 10, Estimated GFR 46 L, BUN/Creatinine Ratio 24.7, Glucose 112 H, Calcium 8.6, Magnesium 2.0, Total Bilirubin 1.1, AST 25, ALT 22, Alkaline Phosphatase 56, Troponin I 0.02, Total Protein 6.4, Albumin 3.9, Globulin 2.5, Albumin/Globulin Ratio 1.6 08/02/17 1120: CBC w Diff MAN DIFF ORDERED, RBC 4.17 L, MCV 93.9, MCH 32.3 H, MCHC 34.5, RDW 12.4, MPV 7.3 L, Gran % 88.3 H, Lymphocytes % 5.5 L, Monocytes % 6.1, Eosinophils % 0, Basophils % 0.1, Absolute Granulocytes 15.4 H, Segmented Neutrophils 72, Band Neutrophils 7 H, Absolute Lymphocytes 1.0 L, Lymphocytes 12 L, Monocytes 8, Absolute Monocytes 1.1 H, Eosinophils 1, Absolute Eosinophils 0, Absolute Basophils 0, Platelet Estimate VERIFIED BY SMEAR, Normocytic RBCs VERIFIED, Normochromic RBCs VERIFIED Microbiology 08/02 2016 URINE ROUT: Urine Culture - RECD 08/03 1939 BLOOD: Blood Culture - RECD 08/03 1931 STOOL: Clostridium difficile Toxin A & B - RECD 08/03 1931 STOOL: Stool Culture - RECD 08/02 1849 BLOOD: Blood Culture - RECD 08/02 122 STOOL: Cryptosporidium Antigen - COLB 08/02 1220 STOOL: Giardia Antigen (JOSÉ) - COLB Assessment/Plan Assessment: Patient is 72 year old male with PMH of HTN, HLD, [place] in 2011, s/o pheocytochroma removal in 1983, anxiety came with chief complain of recurrent diarrhea and lethargy. Patient states that it all started on Saturday when he was in his usual state of health and he suddenly developed non bloody diarrhea. He reports that he has been going around 20 times a day. Patient also reports of burning micturition and urinary hesitancy since Saturday. Patient denies any sick contacts at home, has not eaten anything from outside, denies abdominal discomfort, nausea, vomiting. Patient states that he has been having low appetite since past 2 days and has not eaten anything. Patient reports that he had a fever of 100.8 on Saturday and it remained in 100 yesterday as well. Labs and vitals as above. Plan: morning labs are pending, awaiting BEP o monitor JERRELL after Iv fluids. Please follow up BC x 2, UC, Stool culture ova/parasite and c diff. Patient reports that yesterday morning her had bowel and urinary incontinence and now after one dose of OTC loperamide (taken yesterday) he reports of urinary hesitency. It is also accompanied with symptoms of urgency and burning micturation. He was staright cathed at 8pm and 700cc of urine came out, and in am, 650 cc of urine came out. Urology consult is placed, please follow up, Patient reports that he never hd any prostate issues. His UA is lazy/cloudy on physical exm and lab analysis showed > 75 WBC and positive for leukocye esterase. Will start him on ceftriaxone right now given his leukocytosis and fever of 101.3. Will hold his lisinopril and continue the rest of his home meds including aspirin, statin, paroxetine. Patient smokes half a pack/ day, will give 14 mcg nicotine patch DVT ppx. SC heprin Patient is FC. Problem List: 1. Diarrhea 2. Acute kidney injury Pain Ratin Pain Location: lower abdomen. Pain Goal: Pain 4 or less Pain Plan: tylenol prn for pain and fever Tomorrow's Labs & Rationales: cbc bep Isha OJEDA,Ifeoma 08/03/17 1439: Attending MD Review Statement Attending Statement Attending MD Statement: examined this patient, discuss w/resident/PA/OXYGEN EQUIPMENT PREPARER, agreed w/resident/PA/OXYGEN EQUIPMENT PREPARER, reviewed EMR data (avail) Attending Assessment/Plan: 72M PMH HTN, HLD, recent endovascular aortic aneurysm repair on 07/07/17 presenting with 2 days of profuse watery diarrhea. Complains of fever, chills, myalgia, and 20+ episodes of diarrhea per day. No recent antibiotics, sick contacts, or travel. Mildly febrile at home at 100, normal vitals here, WBC 17.9, sodium 133, creatinine 1.5, normal lactate on admission. Today patient feels a bit better. His diarrhea has slowed though it is still present. He has abdominal bloating but his pain is improved. Renal function normalized. He still has no appetite. 1. Acute gastroenteritis 2. JERRELL 3. Dehydration Plan - Continue on general medicine - Once eating may discontinue IV fluids - Monitor renal function - C.diff negative - Continue home medications, holding anti-hypertensives - DVT PPx - Advance diet as tolerated, clear liquids for now
[2017-08-03 05:55] VITALS: BP 120/58
[2017-08-03 08:37] LABS: ABSOLUTE BASOPHIL COUNT 0 /CUMM (0.0-0.2); ABSOLUTE EOSINOPHIL COUNT 0 /CUMM (0.0-0.7); BASOPHIL % 0 % (0.0-2.0); EOSINOPHIL % 0 % (0-5)
[2017-08-03 09:17] LABS: ABSOLUTE GRANULOCYTE CT 12.5 /CUMM (1.4-6.5); ABSOLUTE LYMPH COUNT 0.7 /CUMM (1.2-3.4); ABSOLUTE MONOCYTE COUNT 0.9 /CUMM (0.10-0.60); MEAN CORPUSCULAR HGB 32.2 PG (27.0-31.0); MEAN CORPUSCULAR HGB CONC 33.8 G/DL (33.0-37.0); MEAN CORPUSCULAR VOLUME 95.5 FL (80.0-94.0); MEAN PLATELET VOLUME 8.1 FL (7.4-10.4); PLATELET COUNT 154 /CUMM (130-400); RBC DISTRIBUTION WIDTH 12.4 % (11.5-14.5); RED BLOOD CELL CT 3.53 /CUMM (4.70-6.10); WHITE BLOOD CELL COUNT 14.1 /CUMM (4.8-10.8)
[2017-08-03 09:26] LABS: HEMATOCRIT 33.7 % (42-52)
[2017-08-03 10:19] LABS: GRANULOCYTE % 88.7 % (42.2-75.2)
[2017-08-03 14:13] VITALS: BP 110/60
[2017-08-03 20:30] VITALS: BP 120/70
[2017-08-03 21:37] VITALS: BP 120/70
[2017-08-04 06:57] VITALS: BP 117/68
--- NOTE | 2017-08-04 08:44 | PN- Housestaff ---
Juvenal OJEDA,Maria Isabel 08/04/17 0843: Subjective Follow-up For: UTI sepsis DIARRHEA Subjective: PT feeling bettrer, less pain, diarrhea stopped, soft bowel movements now. admits to a lot of gas. no nausea or vomiting. continues to be febrile thorughtou the day. Review of Systems Constitutional: Reports: fever. EENTM: Reports: no symptoms. Cardiovascular: Reports: no symptoms. Respiratory: Reports: no symptoms. Gastrointestinal: Reports: abdominal pain. Genitourinary: Reports: no symptoms. Musculoskeletal: Reports: no symptoms. Skin: Reports: no symptoms. Objective Last 24 Hrs of Vital Signs/I&O Vital Signs Date Time Temp Pulse Resp B/P B/P Pulse O2 O2 Flow FiO2 Mean Ox Delivery Rate 08/04 1816 99.2 08/04 1615 100.4 08/04 1608 100.4 08/04 1509 102.0 08/04 1509 102.0 08/04 1425 100.9 70 20 110/60 95 Room Air 08/04 0700 99.5 08/04 0657 100.6 75 20 117/68 96 Room Air 08/04 0530 100.6 08/03 2156 100.2 08/03 2155 100.2 Intake & Output 08/04 1600 08/04 0800 08/04 0000 Intake Total 500 480 700 Output Total 450 400 450 Balance 50 80 250 Intake, Oral 500 480 700 Output, Urine 450 400 450 Physical Exam General Appearance: Alert, Oriented X3, Cooperative, No Acute Distress Skin: No Rashes, No Breakdown, No Significant Lesion Skin Temp/Moisture Exam: Warm/Dry HEENT: Atraumatic, PERRLA, EOMI, Mucous Membr. moist/pink Cardiovascular: Regular Rate, Normal S1, Normal S2, No Murmurs, Gallops Lungs: Clear to Auscultation, Normal Air Movement Abdomen: Normal Bowel Sounds, Soft, No Hepatospenomegaly Neurological: Normal Speech Current Medications: Current Medications Sig/Jared Start time Last Medication Dose Route Stop Time Status Admin Acetaminophen 500 MG ONCE ONE 08/04 1500 DC 08/04 PO 08/04 1501 1509 Acetaminophen 1,000 MG ONCE ONE 08/04 0530 DC 08/04 N/A 1 UNIT IV 08/04 0544 0530 Aspirin 325 MG DAILY 08/02 1733 AC 08/04 PO 0817 Atorvastatin Calcium 40 MG 1700 08/02 1733 AC 08/04 PO 1634 Ceftriaxone Sodium 1,000 MG 0600 08/03 0600 AC 08/04 IV 0534 Heparin Sodium 5,000 UNIT Q8 08/02 2200 08/04 (Porcine) SC 1322 Nicotine 14 MG DAILY 08/02 1753 08/04 TOP 0817 Paroxetine HCl 20 MG DAILY 08/02 1734 08/04 PO 0817 Simethicone 80 MG Q6P PRN 08/03 1330 AC 08/03 PO 1401 Tamsulosin HCl 0.4 MG DAILY 08/04 1654 AC 08/04 PO 1844 Last 24 Hrs of Lab/José Results Last 24 Hrs of Labs/Mics: Laboratory Tests 08/04/17 0650: Anion Gap 6, Estimated GFR > 60, BUN/Creatinine Ratio 26.3 H, CBC w Diff NO MAN DIFF REQ, RBC 3.37 L, MCV 94.8 H, MCH 32.7 H, MCHC 34.5, RDW 12.4, MPV 8.0, Gran % 89.2 H, Lymphocytes % 5.2 L, Monocytes % 5.3, Eosinophils % 0, Basophils % 0.3, Absolute Granulocytes 8.8 H, Absolute Lymphocytes 0.5 L, Absolute Monocytes 0.5, Absolute Eosinophils 0, Absolute Basophils 0 Microbiology 08/04 429 STOOL: Cryptosporidium Antigen - COMP 08/04 429 STOOL: Giardia Antigen (JOSÉ) - COMP Assessment/Plan Assessment: Patient is 72 year old male with PMH of HTN, HLD, [place] in 2011, s/o pheocytochroma removal in 1983, anxiety came with chief complain of recurrent diarrhea and lethargy. Patient states that it all started on Saturday when he was in his usual state of health and he suddenly developed non bloody diarrhea. He reports that he has been going around 20 times a day. Patient also reports of burning micturition and urinary hesitancy since Saturday. Patient denies any sick contacts at home, has not eaten anything from outside, denies abdominal discomfort, nausea, vomiting. Patient states that he has been having low appetite since past 2 days and has not eaten anything. Patient reports that he had a fever of 100.8 on Saturday and it remained in 100 yesterday as well. Labs and vitals as above. Plan: FOUND to have serratia on urine culture now on ceftriaxone, positive blood culture, follow for buG ID, so far GNRs. continues to have fever. shiga tox and cdiff negative. stool culture and o and p pending. wbc trending down. Patient with urinary retention, white. urology consult stated to stop white and attempt voiding trials which we will do tomorrow.start flomax. hematuria resolving as well. Will hold his lisinopril and continue the rest of his home meds including aspirin, statin, paroxetine. Patient smokes half a pack/ day, will give 14 mcg nicotine patch DVT ppx. SC heprin Patient is FC. Problem List: 1. Dehydration 2. Diarrhea 3. UTI (urinary tract infection) Pain Ratin Pain Location: na Pain Goal: Remain pain free Pain Plan: na Tomorrow's Labs & Rationales: Ifeoma Chinchilla MD 08/04/17 1153: Attending MD Review Statement Attending Statement Attending MD Statement: examined this patient, discuss w/resident/PA/GASKET FORMER, agreed w/resident/PA/GASKET FORMER, reviewed EMR data (avail) Attending Assessment/Plan: 72M PMH HTN, HLD, recent endovascular aortic aneurysm repair on 07/07/17 presenting with 2 days of profuse watery diarrhea. Complains of fever, chills, myalgia, and 20+ episodes of diarrhea per day. No recent antibiotics, sick contacts, or travel. Mildly febrile at home at 100, normal vitals here, WBC 17.9, sodium 133, creatinine 1.5, normal lactate on admission. Better today. Abdominal pain and diarrhea improved. Urine growing Serratia. 1. Acute gastroenteritis 2. JERRELL 3. Dehydration Plan - Continue on general medicine - Continue Ceftriaxone for Serratia UTI - Remove White for voiding trial - Follow urology - Start Flomax - Monitor renal function - C.diff negative - DVT PPx - Advance diet
[2017-08-04 08:57] LABS: ABSOLUTE BASOPHIL COUNT 0 /CUMM (0.0-0.2); ABSOLUTE EOSINOPHIL COUNT 0 /CUMM (0.0-0.7); ABSOLUTE GRANULOCYTE CT 8.8 /CUMM (1.4-6.5); ABSOLUTE LYMPH COUNT 0.5 /CUMM (1.2-3.4); ABSOLUTE MONOCYTE COUNT 0.5 /CUMM (0.10-0.60); BASOPHIL % 0.3 % (0.0-2.0); EOSINOPHIL % 0 % (0-5); HEMATOCRIT 31.9 % (42-52); MEAN CORPUSCULAR HGB 32.7 PG (27.0-31.0); MEAN CORPUSCULAR HGB CONC 34.5 G/DL (33.0-37.0); MEAN CORPUSCULAR VOLUME 94.8 FL (80.0-94.0); PLATELET COUNT 165 /CUMM (130-400); RBC DISTRIBUTION WIDTH 12.4 % (11.5-14.5); RED BLOOD CELL CT 3.37 /CUMM (4.70-6.10); WHITE BLOOD CELL COUNT 9.9 /CUMM (4.8-10.8)
[2017-08-04 09:50] LABS: GRANULOCYTE % 89.2 % (42.2-75.2)
--- NOTE | 2017-08-04 10:21 | Cons- Urology ---
General Information and HPI Consulting Request Date of Consult: 08/04/17 Requested By: Ifeoma Vieira MD Reason for Consult: urinary retention and gross hematuria Source of Information: patient, old records Exam Limitations: no limitations History of Present Illness: This is a 72yo male with past medical history of hypertension, hyperlipidemia, [place] in 2011 s/p pheocytochroma removal in 1983 and recent aortic aneurysm repair on 07/07/17. Patient presented to [facility] on 08/02 with complain of multiple diarrheal episodes. Patient stated that he was in usual state of health until last Saturday when he started feeling chills and sweating myalgias and had an diarrheal episode. Ever since then patient has had 20 episodes of diarrhea every day. Diarrhea is loose watery, foul-smelling, where his Simcor from yellow to brown. He denied any nausea vomiting or abdominal pain. At home patient has been running fevers up to 100.9. The patient reports poor appetite and decreased oral intake. He reported an episode of fall because of losing balance and feeling so weak. Patient landed on his hip. And reports some pain in coccyx. Patient did not lose consciousness. There was no seizure-like activity or urinary or fecal incontinence He also reported increased urinary urgency, increased frequency along with burning sensation with urination. He has had a bout of gross hematuria once in the past that resolved due to an UTI. He has no genitourinary complaints. Never seen an Urologist. No personal or family hx of BPH/CAP. Allergies/Medications Allergies: Coded Allergies: No Known Allergies (07/04/17) Home Med List: Aspirin (Aspirin*) 325 MG TABLET 1 TAB PO DAILY CARDIAC (Reported) Atorvastatin Calcium 40 MG TABLET 1 TAB PO DAILY CHOLESTEROL (Reported) Lisinopril 20 MG TABLET 1 TAB PO DAILY HTN (Reported) Oxycodone HCl/Acetaminophen (Percocet 5-325 MG Tablet) 5 MG-325 MG TABLET 1-2 TAB PO Q4-6 PRN PAIN Paroxetine HCl 20 MG TABLET 1 TAB PO DAILY MOOD (Reported) Past History Medical History Blood Transfusion Hx: No Neurological: NONE EENT: NONE Cardiovascular: hyperlipidemia, myocardial infarction Respiratory: NONE Gastrointestinal: NONE Hepatic: NONE Renal: NONE Musculoskeletal: NONE Psychiatric: NONE Endocrine: L ADRENECTOMY Blood Disorders: NONE Cancer(s): NONE LINE WALKER/Reproductive: NONE Surgical History Pertinent Surgical History: AAA repair Family History Relations & Conditions If Any: Relation not specified for: *No pertinent family history Psychosocial History Where Do You Live? Home Who Do You Live With? spouse Services at Home: None Primary Language: Russian Smoking Status: Current Everyday Smoker ETOH Use: denies use Illicit Drug Use: denies illicit drug use Functional Ability ADLs Independent: dressing, eating, toileting, bathing. Ambulation: independent IADLs Independent: shopping, housework, finances, food prep, telephone, transportation , medication admin. Review of Systems Review of Systems Constitutional: Reports: no symptoms. EENTM: Reports: no symptoms. Cardiovascular: Reports: no symptoms. Respiratory: Reports: no symptoms. GI: Reports: diarrhea. Genitourinary: Reports: no symptoms. Musculoskeletal: Reports: no symptoms. Skin: Reports: no symptoms. Neurological/Psychological: Reports: no symptoms. Hematologic/Endocrine: Reports: no symptoms. Immunologic/Allergic: Reports: no symptoms. Exam & Diagnostic Data Vital Signs and I&O Vital Signs Date Time Temp Pulse Resp B/P B/P Pulse O2 O2 Flow FiO2 Mean Ox Delivery Rate 08/04 0700 99.5 08/04 0657 100.6 75 20 117/68 96 Room Air 08/04 0530 100.6 08/03 2156 100.2 08/03 2155 100.2 08/03 2056 101.4 08/03 2030 101.4 73 20 120/70 93 Room Air 08/03 1543 Room Air 08/03 1413 99.1 67 20 110/60 96 Room Air Intake & Output 08/04 1600 08/04 0800 08/04 0000 08/03 1600 08/03 0800 08/03 0000 Intake Total 336 471 5107 1200 480 Output Total 400 450 550 650 700 Balance 80 250 650 550 -220 Intake, IV 700 800 Intake, Oral 480 700 500 400 480 Number 1 1 Bowel Movements Output, Urine 400 450 550 650 700 Patient 101.605 kg Weight Weight Reported by Patient Measurement Method Physical Exam General Appearance: well developed/nourished, no apparent distress, alert, awake , comfortable Head: atraumatic, normal appearance Eyes: Bilateral: normal appearance. Ears, Nose, Throat: normal ENT inspection Neck: normal inspection Respiratory: normal breath sounds Gastrointestinal: soft, non-tender, distention Rectal: deferred Back: normal inspection Extremities: normal inspection Neurologic/Psych: awake, alert, oriented x 3 Cranial Nerves: normal hearing, normal speech Skin: intact, normal color, warm/dry Last 24 Hours of Labs: Laboratory Tests 08/04 0650 Chemistry Sodium (137 - 145 mmol/L) 133 L Potassium (3.5 - 5.1 mmol/L) 4.0 Chloride (98 - 107 mmol/L) 101 Carbon Dioxide (22 - 30 mmol/L) 26 Anion Gap (5 - 16) 6 BUN (9 - 20 mg/dL) 21 H Creatinine (0.7 - 1.2 mg/dL) 0.8 Estimated GFR (>60 ml/min) > 60 BUN/Creatinine Ratio (7 - 25 %) 26.3 H Hematology CBC w Diff NO MAN DIFF REQ WBC (4.8 - 10.8 /CUMM) 9.9 RBC (4.70 - 6.10 /CUMM) 3.37 L Hgb (14.0 - 18.0 G/DL) 11.0 L Hct (42 - 52 %) 31.9 L MCV (80.0 - 94.0 FL) 94.8 H MCH (27.0 - 31.0 PG) 32.7 H MCHC (33.0 - 37.0 G/DL) 34.5 RDW (11.5 - 14.5 %) 12.4 Plt Count (130 - 400 /CUMM) 165 MPV (7.4 - 10.4 FL) 8.0 Gran % (42.2 - 75.2 %) 89.2 H Lymphocytes % (20.5 - 51.1 %) 5.2 L Monocytes % (1.7 - 9.3 %) 5.3 Eosinophils % (0 - 5 %) 0 Basophils % (0.0 - 2.0 %) 0.3 Absolute Granulocytes (1.4 - 6.5 /CUMM) 8.8 H Absolute Lymphocytes (1.2 - 3.4 /CUMM) 0.5 L Absolute Monocytes (0.10 - 0.60 /CUMM) 0.5 Absolute Eosinophils (0.0 - 0.7 /CUMM) 0 Absolute Basophils (0.0 - 0.2 /CUMM) 0 Other Results: neg urine culture and normal Cr and WBC Assessment/Plan Assessment/Plan 72yo male with multiple med problems who experienced gross hematuria and urinary retention with no history other than one previous episose of GH years ago. He has never been to an Urologist. Cont white until no longer needed and can consider a trial of void prior to discharge. If he fails, then reinsert catheter and FU with urology as an outpatient. FU prn. Consult Acknowledgment - Thank you for your consult request.
[2017-08-04 14:25] VITALS: BP 110/60
[2017-08-04 22:14] VITALS: BP 140/60
[2017-08-05 06:01] VITALS: BP 110/62
[2017-08-05 09:18] LABS: ABSOLUTE BASOPHIL COUNT 0 /CUMM (0.0-0.2); ABSOLUTE EOSINOPHIL COUNT 0 /CUMM (0.0-0.7); ABSOLUTE GRANULOCYTE CT 4.3 /CUMM (1.4-6.5); ABSOLUTE LYMPH COUNT 0.7 /CUMM (1.2-3.4); ABSOLUTE MONOCYTE COUNT 0.5 /CUMM (0.10-0.60); BASOPHIL % 0.5 % (0.0-2.0); EOSINOPHIL % 0.4 % (0-5); GRANULOCYTE % 77.7 % (42.2-75.2); MEAN CORPUSCULAR HGB 32.3 PG (27.0-31.0); MEAN CORPUSCULAR HGB CONC 34.1 G/DL (33.0-37.0); MEAN CORPUSCULAR VOLUME 94.9 FL (80.0-94.0); MEAN PLATELET VOLUME 7.7 FL (7.4-10.4); PLATELET COUNT 169 /CUMM (130-400); RBC DISTRIBUTION WIDTH 12.6 % (11.5-14.5); RED BLOOD CELL CT 3.48 /CUMM (4.70-6.10); WHITE BLOOD CELL COUNT 5.6 /CUMM (4.8-10.8)
--- NOTE | 2017-08-05 10:12 | PN- Housestaff ---
Subjective Follow-up For: sepsis secondary to UTI diarrhea analia Subjective: Patient states that he is feeling better today. He is afebrile. The patient just had his White removed and has not yet voided so we will see if he is experiencing any dysuria at that time. He does have a little bit of bloating in his abdomen as per patient complaints but he is experiencing no pain. No pain in the flanks. The shunt is eating. He notes some muscle soreness "from laying in bed". Denies any nausea or vomiting. Review of Systems Constitutional: Reports: no symptoms. EENTM: Reports: no symptoms. Cardiovascular: Reports: no symptoms. Respiratory: Reports: no symptoms. Gastrointestinal: Reports: bloating. Genitourinary: Reports: no symptoms. Musculoskeletal: Reports: back pain. Skin: Reports: no symptoms. Neurological/Psychological: Reports: no symptoms. Objective Last 24 Hrs of Vital Signs/I&O Vital Signs Date Time Temp Pulse Resp B/P B/P Pulse O2 O2 Flow FiO2 Mean Ox Delivery Rate 08/05 0601 98.8 62 20 110/62 94 Room Air 08/05 0147 99.4 08/05 0048 100.4 08/04 2342 100.4 08/04 2214 98.6 64 20 140/60 96 08/04 1816 99.2 08/04 1615 100.4 08/04 1608 100.4 08/04 1509 102.0 08/04 1509 102.0 Intake & Output 08/05 1600 08/05 0800 08/05 0000 Intake Total 950 260 Output Total 625 975 650 Balance 325 -975 -390 Intake, IV 20 Intake, Oral 950 240 Output, Urine 625 975 650 Physical Exam General Appearance: Alert, Oriented X3, Cooperative, No Acute Distress Skin: No Rashes, No Breakdown, No Significant Lesion Skin Temp/Moisture Exam: Warm/Dry HEENT: Atraumatic, EOMI, Mucous Membr. moist/pink Cardiovascular: Regular Rate, Normal S1, Normal S2, No Murmurs Lungs: Clear to Auscultation, Normal Air Movement Abdomen: Normal Bowel Sounds, Soft, No Tenderness, No Hepatospenomegaly Neurological: Normal Speech Extremities: No Clubbing, No Cyanosis, No Edema, Normal Pulses Vascular: Normal Pulses Current Medications: Current Medications Sig/Jared Start time Last Medication Dose Route Stop Time Status Admin Acetaminophen 650 MG .STK-MED ONE 08/05 0045 DC PO 08/05 0046 Acetaminophen 650 MG Q8P PRN 08/04 2345 AC 08/05 PO 0048 Acetaminophen 500 MG ONCE ONE 08/04 1500 DC 08/04 PO 08/04 1501 1509 Aspirin 325 MG DAILY 08/02 1733 AC 08/05 PO 0845 Atorvastatin Calcium 40 MG 1700 08/02 1733 AC 08/04 PO 1634 Ceftriaxone Sodium 1,000 MG 0600 08/03 0600 AC 08/05 IV 0527 Heparin Sodium 5,000 UNIT Q8 08/02 2200 AC 08/05 (Porcine) SC 1347 Nicotine 14 MG DAILY 08/02 1753 AC 08/05 TOP 0845 Paroxetine HCl 20 MG DAILY 08/02 1734 AC 08/05 PO 0845 Simethicone 80 MG Q6P PRN 08/03 1330 AC 08/04 PO 2132 Tamsulosin HCl 0.4 MG DAILY 08/04 1654 AC 08/05 PO 0845 Last 24 Hrs of Lab/José Results Last 24 Hrs of Labs/Mics: Laboratory Tests 08/05/17 0731: Anion Gap 7, Estimated GFR > 60, BUN/Creatinine Ratio 18.6, CBC w Diff NO MAN DIFF REQ, RBC 3.48 L, MCV 94.9 H, MCH 32.3 H, MCHC 34.1, RDW 12.6, MPV 7.7, Gran % 77.7 H, Lymphocytes % 12.0 L, Monocytes % 9.4 H, Eosinophils % 0.4, Basophils % 0.5, Absolute Granulocytes 4.3, Absolute Lymphocytes 0.7 L, Absolute Monocytes 0.5, Absolute Eosinophils 0, Absolute Basophils 0 Assessment/Plan Assessment: Patient is 72 year old male with PMH of HTN, HLD, [place] in 2011, s/o pheocytochroma removal in 1983, anxiety came with chief complain of recurrent diarrhea and lethargy. Patient states that it all started on Saturday when he was in his usual state of health and he suddenly developed non bloody diarrhea. He reports that he has been going around 20 times a day. Patient also reports of burning micturition and urinary hesitancy since Saturday. Patient denies any sick contacts at home, has not eaten anything from outside, denies abdominal discomfort, nausea, vomiting. Patient states that he has been having low appetite since past 2 days and has not eaten anything. Patient reports that he had a fever of 100.8 on Saturday. Patient was febrile yesterday 08/04 to 100.4. Labs and vitals as above. Plan: FOUND to have serratia on urine culture now on ceftriaxone, positive blood culture, sensitivites reported. afebrile today. shiga tox and cdiff negative. stool culture and o and p negative. wbc trending down. Patient with urinary retention, white. urology consult stated to stop white and attempt voiding trial which patient did well on. continue flomax. hematuria resolved as well. Will hold his lisinopril and continue the rest of his home meds including aspirin, statin, paroxetine. Patient smokes half a pack/ day, will give 14 mcg nicotine patch. blood pressure low normal at 110/62. DVT ppx. SC heprin Patient is FC. Problem List: 1. UTI (urinary tract infection) 2. Diarrhea Pain Ratin Pain Location: na Pain Goal: Remain pain free Pain Plan: na Tomorrow's Labs & Rationales: na
--- NOTE | 2017-08-05 14:47 | Patient Discharge Instructions ---
Discharge Instructions General Discharge Information You were seen/treated for: UTI DIARRHEA JERRELL Special Instructions: FOLLOW UP WITH YOUR PCP WITHIN 1 WEEK OF DISCHARGE FOLLOW UP WITH THE UROLOGIST WITHIN 1 WEEK OF DISCHARGE Diet Continue normal diet: Yes Activity Full Activity/No Limits: Yes Acute Coronary Syndrome Inclusion Criteria At DC or during hospital stay patient has or had the following: ACS DIAGNOSIS No Discharge Core Measures Meds if any: Prescribed or Continued at Discharge Meds if any: NOT Prescribed or Continued at Discharge Congestive Heart Failure Inclusion Criteria At DC or during hospital stay patient has or had the following: CHF DIAGNOSIS No Discharge Core Measures Meds if any: Prescribed or Continued at Discharge Meds if any: NOT Prescribed or Continued at Discharge Cerebrovascular accident Inclusion Criteria At DC or during hospital stay patient has or had the following: CVA/TIA Diagnosis No Discharge Core Measures Meds if any: Prescribed or Continued at Discharge Meds if any: NOT Prescribed or Continued at Discharge Venous thromboembolism Inclusion Criteria VTE Diagnosis No VTE Type NONE VTE Confirmed by (Test) NONE Discharge Core Measures - Per Current guidelines, there needs to be overlap - treatment for the first 5 days of Warfarin therapy. - If discharged on Warfarin prior to 5 days of - overlap therapy, the patient will need to be - assessed for post discharge needs including - *Post discharge parental anticoagulation - *Warfarin and/or parental anticoagulation education - *Follow up date to check INR post discharge At least 5 days overlap therapy as Inpatient No Meds if any: Prescribed or Continued at Discharge Note: Overlap Therapy is Warfarin and Anticoagulant Meds if any: NOT Prescribed or Continued at Discharge
[2017-08-05] MEDS ORDERED: CIPRO500 M1 PO (14:51)
[2017-08-05] MEDS ORDERED: FLOMAX0.4 M1 PO (14:54)
[2017-08-05 15:01] VITALS: BP 110/70
--- NOTE | 2017-08-06 09:16 | Discharge Summary ---
Hospital Course Allergies: Coded Allergies: No Known Allergies (07/04/17) Discharge Instructions Medications at Discharge Discharge Medications: Continue taking these medications: Lisinopril (Lisinopril) 20 MG TABLET 1 Tablet ORAL DAILY Comments: NOT TAKEN IN HOSPITAL Atorvastatin Calcium (Atorvastatin Calcium) 40 MG TABLET 1 Tablet ORAL DAILY Comments: Last Taken: 08/04/17 Time: 1700 pm Paroxetine HCl (Paroxetine HCl) 20 MG TABLET 1 Tablet ORAL DAILY Comments: Last Taken: 08/05/17 Time: 0845 AM Aspirin (Aspirin*) 325 MG TABLET 1 Tablet ORAL DAILY Comments: Last Taken: 08/05/17 Time: 0845AM Oxycodone HCl/Acetaminophen (Percocet 5-325 MG Tablet) 5 MG-325 MG TABLET 1-2 Tablet ORAL EVERY 4-6 HOURS as needed for PAIN Qty = 15 Comments: NOT GIVEN IN HOSPITAL Start taking the following new medications: Tamsulosin HCl (Flomax) 0.4 MG CAP.ER.24H 0.4 Milligram ORAL DAILY Qty = 30 No Refills Comments: Last Taken: 08/05/17 Time: 0845 AM Ciprofloxacin HCl (Cipro) 500 MG TABLET 1 Tablet ORAL TWICE DAILY Qty = 28 No Refills
== END 2017-08-05 16:15 | DRG 872 ==
LOC: ERH 11:15 → ERHI 15:32 → ENRESERV 16:26 → ENTRNSPT 17:49 → EDTRNSPT 17:54 → EDTRNSPTSTS 17:54 → 2NA 18:09 → CMPTRNSPT 18:10 → 2NA 18:15 → ENPENDDIS 08-05 14:55 → DELTRNSPT 08-05 15:54 → 2NA 08-05 16:15
PROVIDERS: Internal Medicine; Physician Assistant; Student in an Organized Health Care Education/Training Program
DX: A41.50 Gram-negative sepsis, unspecified (principal); N17.9 Acute kidney failure, unspecified; N39.0 Urinary tract infection, site not specified; R31.9 Hematuria, unspecified; B96.89 Other specified bacterial agents as the cause of diseases classified elsewhere; R19.7 Diarrhea, unspecified; E86.0 Dehydration; I10 Essential (primary) hypertension; E78.5 Hyperlipidemia, unspecified; I25.2 Old myocardial infarction; F41.9 Anxiety disorder, unspecified; F17.200 Nicotine dependence, unspecified, uncomplicated; R33.9 Retention of urine, unspecified; Z79.82 Long term (current) use of aspirin
CPT/HCPCS: 2NAP; 36592; 71046; 81001; 82436; 87015; 87040; 87045; 87086; 87328; 87329; 87899; 87899-59; 93005; 93010; 97110-GO; 97116-GO; 97161-GP; J0131; J0696; J1644